=== PATIENT | male | born 1945 | race African-American/Black ===

== ENCOUNTER 2021-05-03 11:58 | Inpatient (IN) | payer OTHER ==
[2021-05-03 13:09] VITALS: BMI 19.5
[2021-05-03] MEDS ORDERED: MENTHOL/PHENOL 1 EACH UD MM PRN (14:48)
[2021-05-03] MEDS ORDERED: MAGNESIUM CITRATE 300 ML BOTTLE PO PRN (14:48)
[2021-05-03] MEDS ORDERED: METHOCARBAMOL 500 MG TABLET PO PRN (14:48)
[2021-05-03] MEDS ORDERED: BISMUTH SUBSALICYLATE 524 MG/30 ML PO PRN (14:48)
[2021-05-03] MEDS ORDERED: IBUPROFEN 400 MG TABLET (FP) PO PRN (14:48)
[2021-05-03] MEDS ORDERED: NICOTINE 10 MG CARTRIDGE (INHALER) IH PRN (14:48)
[2021-05-03] MEDS ORDERED: MAG HYDROX/AL HYDROX/SIMETH 30 ML UNIT-DOSE CUP PO PRN (14:48)
[2021-05-03] MEDS ORDERED: LORazepam 1 MG TABLET PO PRN (14:48)
[2021-05-03] MEDS ORDERED: ACETAMINOPHEN 325 MG TABLET (FP) PO PRN ×2 (14:48)
[2021-05-03] MEDS ORDERED: MAGNESIUM HYDROX 2400MG/30ML ORAL SUSPENSION 30 ML CUP PO PRN (14:48)
[2021-05-03] MEDS ORDERED: ONDANSETRON *ODT* 4 MG TABLET SL PRN (14:48)
[2021-05-03] MEDS: LORazepam 2 MG TABLET PO SCH ×2 (16:29→22:54)
[2021-05-03] MEDS: hydrOXYzine PAMOATE 25 MG CAPSULE (FP) PO SCH ×2 (17:08→22:54)
[2021-05-03] MEDS: MELATONIN 5 MG TABLETS PO SCH (22:54)
[2021-05-03] MEDS: THIAMINE HCL 100 MG TABLET (FP) PO SCH (22:54)
[2021-05-04] MEDS: LORazepam 2 MG TABLET PO SCH ×4 (06:43→23:04)
[2021-05-04] MEDS: hydrOXYzine PAMOATE 25 MG CAPSULE (FP) PO SCH ×5 (06:43→23:03)
[2021-05-04] MEDS: amLODIPine BESYLATE 10 MG TABLET (FP) PO SCH (11:03)
[2021-05-04] MEDS: PRENATAL VITAMINS W/ FOLIC ACID TABLET (FP) PO SCH (11:03)
[2021-05-04] MEDS: THIAMINE HCL 100 MG TABLET (FP) PO SCH (23:04)
[2021-05-04] MEDS: MELATONIN 5 MG TABLETS PO SCH (23:04)
[2021-05-05 01:50] LABS: PH,URINE 5.5 (5.0-8.0); URINE APPEARANCE CLEAR; URINE BILIRUBIN NEGATIVE (NEGATIVE); URINE COLOR YELLOW; URINE GLUCOSE (UA) NEGATIVE (NEGATIVE); URINE KETONE NEGATIVE (NEGATIVE); URINE LEUK ESTERASE NEGATIVE (NEGATIVE); URINE NITRITE NEGATIVE (NEGATIVE); URINE PROTEIN NEGATIVE (NEGATIVE); URINE UROBILINOGEN 0.2 mg/dL (0.2-1.0)
[2021-05-05] MEDS: LORazepam 1 MG TABLET PO SCH ×4 (06:44→23:12)
[2021-05-05] MEDS: hydrOXYzine PAMOATE 25 MG CAPSULE (FP) PO SCH ×5 (06:44→23:12)
[2021-05-05] MEDS: PRENATAL VITAMINS W/ FOLIC ACID TABLET (FP) PO SCH (10:32)
[2021-05-05] MEDS: amLODIPine BESYLATE 10 MG TABLET (FP) PO SCH (10:32)
[2021-05-05 13:11] LABS: HEMATOCRIT 30.7 % (35.4-49); HEMOGLOBIN 10.2 GM/dL (11.7-16.9); MCH 27.3 pg (25.7-33.7); MCHC 33.1 g/dl (32.0-35.9); MEAN CELL VOLUME 82.4 fl (80-96); MEAN PLT VOLUME 8.2 fl (7.5-11.1); PLATELET COUNT 88 10^3/uL (134-434); RBC 3.73 M/mm3 (4.00-5.60); RDW 15.4 % (11.9-15.9); WHITE BLOOD COUNT 2.1 K/mm3 (4.0-10.0)
[2021-05-05 13:19] LABS: ALBUMIN 2.6 g/dl (3.4-5.0); BLOOD UREA NITROGEN 22.1 mg/dL (7-18); CALCIUM 8.8 mg/dL (8.5-10.1); CREATININE 1.2 mg/dL (0.55-1.3)
[2021-05-05 13:20] LABS: TOT PROT 7.1 g/dl (6.4-8.2)
[2021-05-05 13:21] LABS: BILIRUBIN,TOTAL 0.4 mg/dL (0.2-1)
[2021-05-05] MEDS: THIAMINE HCL 100 MG TABLET (FP) PO SCH (23:12)
[2021-05-05] MEDS: MELATONIN 5 MG TABLETS PO SCH (23:12)
[2021-05-06] MEDS ORDERED: LORazepam 0.5 MG TABLET PO PRN
[2021-05-06] MEDS: LORazepam 0.5 MG TABLET PO SCH ×4 (06:21→22:57)
[2021-05-06] MEDS: hydrOXYzine PAMOATE 25 MG CAPSULE (FP) PO SCH ×5 (06:21→22:57)
[2021-05-06 10:34] LABS: BASO % 0.6 % (0-2.0); EOS % 0.8 % (0-4.5); HEMATOCRIT 31.2 % (35.4-49); HEMOGLOBIN 10.3 GM/dL (11.7-16.9); LYMPH % 29.9 % (8-40); MCH 27.3 pg (25.7-33.7); MCHC 32.9 g/dl (32.0-35.9); MEAN PLT VOLUME 8.7 fl (7.5-11.1); MONO % 13.6 % (3.8-10.2); NEUT % 55.1 % (42.8-82.8); PLATELET COUNT 108 10^3/uL (134-434); RBC 3.76 M/mm3 (4.00-5.60); RDW 15.3 % (11.9-15.9); RETICULOCYTES 1.01 % (0.5-1.5); WHITE BLOOD COUNT 2.6 K/mm3 (4.0-10.0)
[2021-05-06 10:38] LABS: INR 1.17 (0.83-1.09); PROTHROMBIN TIME (PATIENT) 13.1 SEC (9.7-13.0)
[2021-05-06 10:42] LABS: CREATININE 1.2 mg/dL (0.55-1.3)
[2021-05-06 10:44] LABS: ALBUMIN 2.8 g/dl (3.4-5.0)
[2021-05-06 10:45] LABS: BLOOD UREA NITROGEN 22.1 mg/dL (7-18); CALCIUM 8.5 mg/dL (8.5-10.1)
[2021-05-06] MEDS: PRENATAL VITAMINS W/ FOLIC ACID TABLET (FP) PO SCH (10:47)
[2021-05-06] MEDS: amLODIPine BESYLATE 10 MG TABLET (FP) PO SCH (10:47)
[2021-05-06 10:48] LABS: TOT PROT 7.2 g/dl (6.4-8.2)
[2021-05-06 10:49] LABS: BILIRUBIN,TOTAL 0.4 mg/dL (0.2-1)
[2021-05-06] MEDS: THIAMINE HCL 100 MG TABLET (FP) PO SCH (22:57)
[2021-05-06] MEDS: MELATONIN 5 MG TABLETS PO SCH (22:57)
[2021-05-07] MEDS ORDERED: LORazepam 0.5 MG TABLET PO ONE (05:00)
[2021-05-07] MEDS: hydrOXYzine PAMOATE 25 MG CAPSULE (FP) PO SCH ×5 (06:41→22:36)
[2021-05-07] MEDS: PRENATAL VITAMINS W/ FOLIC ACID TABLET (FP) PO SCH (10:23)
[2021-05-07] MEDS: amLODIPine BESYLATE 10 MG TABLET (FP) PO SCH (10:23)
[2021-05-07] MEDS: THIAMINE HCL 100 MG TABLET (FP) PO SCH (22:36)
[2021-05-07] MEDS: MELATONIN 5 MG TABLETS PO SCH (22:36)
[2021-05-08] MEDS: hydrOXYzine PAMOATE 25 MG CAPSULE (FP) PO SCH ×5 (06:43→23:11)
[2021-05-08] MEDS: amLODIPine BESYLATE 10 MG TABLET (FP) PO SCH (10:46)
[2021-05-08] MEDS: PRENATAL VITAMINS W/ FOLIC ACID TABLET (FP) PO SCH (10:46)
[2021-05-08] MEDS: MELATONIN 5 MG TABLETS PO SCH (23:11)
[2021-05-08] MEDS: THIAMINE HCL 100 MG TABLET (FP) PO SCH (23:11)
[2021-05-09] MEDS: hydrOXYzine PAMOATE 25 MG CAPSULE (FP) PO SCH ×3 (07:27→15:10)
[2021-05-09] MEDS: PRENATAL VITAMINS W/ FOLIC ACID TABLET (FP) PO SCH (11:42)
[2021-05-09] MEDS: amLODIPine BESYLATE 10 MG TABLET (FP) PO SCH (11:43)
[2021-05-09 13:26] VITALS: BP 142/78; PULSE 71; TEMP 98.4
== END 2021-05-09 15:09 | DRG 897 ==
LOC: YASAS 11:58 → Y3N 15:14
PROVIDERS: ADMIT Allergy & Immunology; ATTEND Allergy & Immunology
PROC: HZ2ZZZZ Detoxification Services for Substance Abuse Treatment (ICD-10-PCS; principal; 2021-05-03)
DX: F10.230 Alcohol dependence with withdrawal, uncomplicated (principal); F17.210 Nicotine dependence, cigarettes, uncomplicated; F31.9 Bipolar disorder, unspecified; I10 Essential (primary) hypertension; M54.59 Other low back pain; G89.29 Other chronic pain; M70.21 Olecranon bursitis, right elbow; R29.6 Repeated falls; R29.2 Abnormal reflex; Z99.89 Dependence on other enabling machines and devices; Z86.19 Personal history of other infectious and parasitic diseases
CPT/HCPCS: 36415; 80053; 81003; 82607; 82746; 83540; 83550; 85025; 85027; 85045; 85610; 86593; 86780; 93005; 93010; 97116-GP; 97161-GP; C9803; U0003; U0005

== ENCOUNTER 2024-08-09 09:31 | Inpatient (IN) | payer OTHER ==
[2024-08-09 10:11] VITALS: BMI 20.9
[2024-08-09] MEDS ORDERED: DOCUSATE SODIUM 100 MG CAPSULE (FP) PO PRN (11:06)
[2024-08-09] MEDS ORDERED: IBUPROFEN 400 MG TABLET (FP) PO PRN (11:06)
[2024-08-09] MEDS ORDERED: MAGNESIUM HYDROX 2400MG/30ML ORAL SUSPENSION 30 ML CUP PO PRN (11:06)
[2024-08-09] MEDS ORDERED: NICOTINE POLACRILEX 2 MG LOZENGE BC PRN (11:06)
[2024-08-09] MEDS ORDERED: BENZOCAINE/MENTHOL (CHLORASEPTIC ) LOZENGE MM PRN (11:06)
[2024-08-09] MEDS ORDERED: NALOXONE (NARCAN) HCL 4 MG/0.1 ML SPRAY NS PRN (11:06)
[2024-08-09] MEDS ORDERED: MAG HYDROX/AL HYDROX/SIMETH 30 ML UNIT-DOSE CUP PO PRN (11:06)
[2024-08-09] MEDS ORDERED: ACETAMINOPHEN 325 MG TABLET (FP) PO PRN ×3 (11:06→11:42)
[2024-08-09] MEDS ORDERED: LOPERAMIDE HCL 2 MG CAPSULE PO PRN (11:06)
[2024-08-09] MEDS ORDERED: NICOTINE POLACRILEX 2 MG GUM BUC PRN (11:06)
[2024-08-09] MEDS ORDERED: IBUPROFEN 600 MG TABLET (FP) PO PRN (11:06)
[2024-08-09] MEDS ORDERED: BENZONATATE 200 MG CAPSULE PO PRN (11:06)
[2024-08-09] MEDS ORDERED: guaiFENesin 600 MG TABLET.ER (FP) PO PRN (11:06)
[2024-08-09] MEDS ORDERED: amLODIPine BESYLATE 5 MG TABLET (FP) ONE (12:04)
[2024-08-09] MEDS ORDERED: ASPIRIN 81 MG CHEWABLE TABLETS ONE (12:04)
[2024-08-09] MEDS: amLODIPine BESYLATE 10 MG TABLET (FP) PO SCH (12:07)
[2024-08-09] MEDS: ASPIRIN 81 MG CHEWABLE TABLETS PO SCH (12:07)
[2024-08-09] MEDS: THIAMINE 100 MG TABLET PO SCH (22:57)
[2024-08-09] MEDS: MELATONIN 5 MG TABLETS PO SCH (22:57)
[2024-08-10 00:07] LABS: EPI CELLS 6 /uL (0-25.1); HYALINE CASTS 1 /uL (0-3.1); URINE APPEARANCE CLEAR; URINE BACTERIA 6 /uL (0-1359); URINE BILIRUBIN NEGATIVE (NEGATIVE); URINE COLOR YELLOW; URINE GLUCOSE (UA) NEGATIVE (NEGATIVE); URINE KETONE TRACE (NEGATIVE); URINE LEUK ESTERASE TRACE (NEGATIVE); URINE NITRITE NEGATIVE (NEGATIVE); URINE PROTEIN 1+ (NEGATIVE); URINE RBC 8 /uL (0-23.9); URINE UROBILINOGEN 0.2 mg/dL (0.2-1.0); URINE WBC 36 /uL (0-25.8)
[2024-08-10 01:26] LABS: YEAST NONE SEEN (NEGATIVE)
[2024-08-10] MEDS: PRENATAL VITAMINS W/ FOLIC ACID TABLET (FP) PO SCH (10:36)
[2024-08-10 11:34] LABS: ALBUMIN 3.3 g/dl (3.4-5.0); BLOOD UREA NITROGEN 27.9 mg/dL (7-18); CALCIUM 8.2 mg/dL (8.5-10.1)
[2024-08-10 11:36] LABS: HEMATOCRIT 31.2 % (35.4-49); HEMOGLOBIN 10.4 GM/dL (11.7-16.9); MCH 28.1 pg (25.7-33.7); MCHC 33.4 g/dl (32.0-35.9); MEAN CELL VOLUME 84.3 fl (80-96); MEAN PLT VOLUME 7.9 fl (7.5-11.1); PLATELET COUNT 130 10^3/uL (134-434); RDW 14.5 % (11.9-15.9); WHITE BLOOD COUNT 2.1 K/mm3 (4.0-10.0)
[2024-08-10 11:38] LABS: CREATININE 1.5 mg/dL (0.55-1.3)
[2024-08-10 11:40] LABS: BILIRUBIN,TOTAL 0.4 mg/dL (0.2-1); TOT PROT 6.6 g/dl (6.4-8.2)
[2024-08-10] MEDS: PNEUMOC 20-VAL CONJ-DIP CRM/PF 0.5 ML SYRINGE IM ONE (12:04)
[2024-08-10] MEDS ORDERED: TUBERCULIN PPD 5 TU/0.1ML VIAL ID ONE (17:42)
[2024-08-15] MEDS: NALTREXONE HCL 50 MG TABLET PO SCH (10:12)
[2024-08-16 11:02] LABS: POTASSIUM 4.4 mmol/L (3.5-5.1)
[2024-08-16 11:10] LABS: CALCIUM 9.4 mg/dL (8.5-10.1)
[2024-08-18] MEDS: POLYETHYLENE GLYCOL (HEALTHYLAX) 3350 17 GM PACKET PO PRN (09:33)
[2024-09-03 06:41] VITALS: RESP 16
[2024-09-04 07:31] VITALS: TEMP 97.3
[2024-09-04 09:12] VITALS: BP 139/74; PULSE 73
== END 2024-09-04 11:02 | disposition home or self-care (01) | DRG 895 ==
LOC: YASAS 09:31 → Y3NR 10:47 → Y3E 08-10 10:51
PROVIDERS: ADMIT Psychiatry & Neurology Pain Medicine; ATTEND Psychiatry & Neurology Pain Medicine
PROC: HZ42ZZZ Group Counseling for Substance Abuse Treatment, Cognitive-Behavioral (ICD-10-PCS; principal; 2024-08-08)
DX: F10.20 Alcohol dependence, uncomplicated (principal); F14.20 Cocaine dependence, uncomplicated; F12.20 Cannabis dependence, uncomplicated; F17.210 Nicotine dependence, cigarettes, uncomplicated; F31.9 Bipolar disorder, unspecified; I10 Essential (primary) hypertension; B18.2 Chronic viral hepatitis C; M54.50 Low back pain, unspecified; G89.29 Other chronic pain; R29.6 Repeated falls; R76.8 Other specified abnormal immunological findings in serum; Z85.830 Personal history of malignant neoplasm of bone; Z99.89 Dependence on other enabling machines and devices
CPT/HCPCS: 36415; 80048; 80053; 80305; 80307; 81003; 85027; 86593; 86780; 87811; 90677; 93005; 93010; G0009